=== PATIENT | female | born 1930 | race Caucasian/White ===

== ENCOUNTER 2017-01-19 10:28 | Emergency (ER) | payer MEDICARE, BC ==
[~2017-01-19] VITALS: Ht 160 cm; Wt 44.9 kg
[~2017-01-19 10:28] MED LIST: ALPR0.25 PO; ASPI-1094 PO; CALC500T3 PO; CITA20TA19 PO; Levothyroxine Sodium PO; PANT40TA2 PO
--- NOTE | 2017-01-19 10:40 | NUR ---
patient in room sinus on heart monitor sbp of 93/53 awake alert oriented X0. Patient totally confused. left wrist swollen red with no open skin.
[2017-01-19] MEDS ORDERED: QUET25TA PO (10:57)
[2017-01-19] MEDS ORDERED: MIRT15TA7 PO (10:57)
[2017-01-19] MEDS ORDERED: ASPI81TA31 PO (10:57)
[2017-01-19] MEDS ORDERED: QUET50TA PO (10:57)
--- NOTE | 2017-01-19 11:29 | NUR ---
at bedside examining patient, private sitter at bedside.
[2017-01-19 11:58] LABS: CALCIUM 9.2 mg/dL (8.5-10.1); CREATININE 0.6 mg/dL (0.6-1.3); POTASSIUM 3.5 mmol/L (3.5-5.1)
--- NOTE | 2017-01-19 11:59 | NUR ---
Patient incontinent and wears a diaper Md notified that at this time unable to collect urine, no further orders received.
[2017-01-19 12:04] LABS: ALBUMIN 3.1 g/dL (3.4-5.0); BILIRUBIN,DIRECT 0.1 mg/dL (0.0-0.2); BILIRUBIN,TOTAL 0.4 mg/dL (0.2-1.0); TOTAL PROTEIN, SERUM 7.4 g/dL (6.4-8.2)
[2017-01-19 12:16] LABS: BASOPHILS # (AUTO) 0.1 K/uL (0.0-0.2); BASOPHILS % (AUTO) 0.9 % (0.0-2.0); EOSINOPHILS # (AUTO) 0.1 K/uL (0.0-0.7); EOSINOPHILS % (AUTO) 0.9 % (0.0-7.0); HEMATOCRIT 33.9 % (37.0-47.0); HEMOGLOBIN 11.4 g/dL (12.0-16.0); LYMPHOCYTES # (AUTO) 1.3 K/uL (0.8-4.8); LYMPHOCYTES % (AUTO) 20.6 % (20.5-51.5); MEAN CORPUSCULAR HEMOGLOBIN 30.9 uug (27.0-31.0); MEAN CORPUSCULAR HGB CONC 34 g/dL (32.0-37.0); MEAN CORPUSCULAR VOLUME 91.8 fL (81.0-99.0); MONOCYTES # (AUTO) 0.6 K/uL (0.1-1.30); MONOCYTES % (AUTO) 9.7 % (0.0-11.0); NEUTROPHILS # (AUTO) 4.1 K/uL (1.8-8.9); NEUTROPHILS % (AUTO) 67.9 % (38.5-71.5); PLATELET COUNT (AUTO) 166 K/uL (150-450); RED BLOOD CELL COUNT(AUTO) 3.69 MIL/uL (4.20-5.40); RED CELL DISTRIBUTION WIDTH 13.3 % (11.5-14.5); WHITE BLOOD COUNT (AUTO) 6.2 K/uL (4.0-11.2)
[2017-01-19] MEDS ORDERED: VANCOMYCIN IV 1,000 MG in IV DEXTROSE 5% 250 ML IV ONE (13:00)
[2017-01-19] MEDS ORDERED: VANCOMYCIN 1000 MG VIAL ONE (14:19)
[2017-01-19] MEDS ORDERED: MORPHINE SULFATE 4 MG/1 ML DISP.SYRIN ONE (14:40)
[2017-01-19] MEDS ORDERED: ONDANSETRON 4 MG/2 ML VIAL ONE (14:41)
--- NOTE | 2017-01-19 15:44 | NUR ---
vancomycin dose completed dcd instructions provided to and signed by game breeding farm manager Candy Wetzel. Iv line dcd patient placed wheelchair and wheel to the door where she will be bead picker by her nephew.
== END 2017-01-19 15:56 | disposition home or self-care (01) ==
LOC: ER 10:31
DX: L03.114 Cellulitis of left upper limb (principal); F03.90 Unspecified dementia, unspecified severity, without behavioral disturbance, psychotic disturbance, mood disturbance, and anxiety; I25.10 Atherosclerotic heart disease of native coronary artery without angina pectoris; K21.9 Gastro-esophageal reflux disease without esophagitis; Z79.82 Long term (current) use of aspirin; Z95.818 Presence of other cardiac implants and grafts
CPT/HCPCS: 36415; 70030-TC; 73110; 85025; 85730; A4663; J2270; J2405; J3370; J7060

== ENCOUNTER 2017-03-09 12:25 | Emergency (ER) | payer MEDICARE, BC ==
[~2017-03-09] VITALS: Ht 157.5 cm; Wt 49.9 kg
[~2017-03-09 12:25] MED LIST changes: -ALPR0.25 PO; -ASPI-1094 PO; +ASPI81TA31 PO; -CALC500T3 PO; -CITA20TA19 PO; +MIRT15TA7 PO; +QUET25TA PO; +QUET50TA PO
--- NOTE | 2017-03-09 12:42 | NUR ---
endorsed to BONNIE curtis
--- NOTE | 2017-03-09 13:41 | NUR ---
Patient discharged to home in stable conditon. Written and verbal after care instructions given to patient's private caregiver. Patient's caregiver verbalizes understanding of instructions.
== END 2017-03-09 13:43 | disposition home or self-care (01) ==
LOC: ER 12:25
DX: L03.114 Cellulitis of left upper limb (principal); I25.10 Atherosclerotic heart disease of native coronary artery without angina pectoris; K21.9 Gastro-esophageal reflux disease without esophagitis; F03.90 Unspecified dementia, unspecified severity, without behavioral disturbance, psychotic disturbance, mood disturbance, and anxiety; Z95.818 Presence of other cardiac implants and grafts; Z79.82 Long term (current) use of aspirin
CPT/HCPCS: 73110; 99284; A4663

== ENCOUNTER 2017-09-06 15:18 | Inpatient (IN) | payer MEDICARE, BC ==
[~2017-09-06] VITALS: Ht 157.5 cm; Wt 45.8 kg
[2017-09-06] MEDS ORDERED: LEVO50TA8 PO (16:08)
[2017-09-06] MEDS ORDERED: IV NORMAL SALINE 1000 ML BAG IV ONE (16:15)
[2017-09-06] MEDS ORDERED: ONDANSETRON 4 MG/2 ML VIAL IV ONE (16:15)
[2017-09-06] MEDS ORDERED: MORPHINE SULFATE 2 MG/1 ML DISP.SYRIN IV ONE (16:15)
[2017-09-06] MEDS ORDERED: VANCOMYCIN IV 1,000 MG in IV DEXTROSE 5% 250 ML IV ONE ×2 (16:15→20:00)
[2017-09-06] MEDS ORDERED: ONDANSETRON 4 MG/2 ML VIAL ONE (16:57)
[2017-09-06] MEDS ORDERED: VANCOMYCIN IV 200 ML ONE (16:59)
[2017-09-06] MEDS ORDERED: MORPHINE SULFATE 10 MG/1 ML DISP.SYRIN ONE (17:00)
[2017-09-06 17:04] LABS: BASOPHILS % (AUTO) 0.5 % (0.0-2.0); EOSINOPHILS # (AUTO) 0.3 K/uL (0.0-0.7); EOSINOPHILS % (AUTO) 4.4 % (0.0-7.0); HEMATOCRIT 33.8 % (31.2-41.9); HEMOGLOBIN 11.3 g/dL (10.9-14.3); LYMPHOCYTES # (AUTO) 1.5 K/uL (20.0-40.0); LYMPHOCYTES % (AUTO) 20.1 % (20.5-51.5); MEAN CORPUSCULAR HEMOGLOBIN 31.8 uug (24.7-32.8); MEAN CORPUSCULAR HGB CONC 34 g/dL (32.3-35.6); MEAN CORPUSCULAR VOLUME 94.8 fL (75.5-95.3); MONOCYTES # (AUTO) 0.6 K/uL (2.0-10.0); MONOCYTES % (AUTO) 7.5 % (0.0-11.0); NEUTROPHILS % (AUTO) 67.5 % (38.5-71.5); PLATELET COUNT (AUTO) 203 K/uL (179-408); RED BLOOD CELL COUNT(AUTO) 3.57 MIL/uL (3.63-4.92); WHITE BLOOD COUNT (AUTO) 7.4 K/uL (3.8-11.8)
[2017-09-06 17:11] LABS: CARBON DIOXIDE 27 mmol/L (21-32); CHLORIDE 105 mmol/L (98-107); CREATININE 0.4 mg/dL (0.6-1.3); GLUCOSE 113 mg/dL (74-106); POTASSIUM 3.7 mmol/L (3.5-5.1); UREA NITROGEN, BLOOD 21 mg/dL (7-18)
[2017-09-06 17:17] LABS: ALANINE AMINOTRANSFERASE 16 U/L (14-59); ALKALINE PHOSPHATASE 60 U/L (50-136); ASPARTATE AMINOTRANSFERASE 15 U/L (15-37); BILIRUBIN,DIRECT 0.1 mg/dL (0.0-0.2); BILIRUBIN,TOTAL 0.2 mg/dL (0.2-1.0); TOTAL PROTEIN, SERUM 6.3 g/dL (6.4-8.2)
[2017-09-06 17:44] LABS: *BLOOD, URINE 2+ (NEGATIVE); *CLARITY,URINE CLOUDY (CLEAR); *COLOR,URINE DARK YELLOW (YELLOW); *KETONES,URINE NEGATIVE (NEGATIVE); *PROTEIN,URINE 1+ (NEGATIVE); *UROBILINOGEN,URINE 0.2 E.U./dl (NORMAL); LEUKOCYTE ESTERASE ,URINE NEGATIVE (NEGATIVE); NITRITE, URINE POSITIVE (NEGATIVE); UGLUCOSE NEGATIVE (NEGATIVE)
[2017-09-06 18:07] LABS: *BILIRUBIN,URIN NEGATIVE (NEGATIVE)
[2017-09-06 18:09] LABS: BACTERIA,URINE MANY /HPF (NONE SEEN); MUCUS,URINE MANY /LPF (0-FEW); SQUAMOUS EPITHELIAL CELL,UR FEW /HPF (NONE SEEN); URINE AMORPHOUS URATE FEW /HPF
[2017-09-06] MEDS ORDERED: PIPERACILLIN SODIUM/TAZOBACTAM 3.375 G in IV DEXTROSE 5% 50 ML IV ONE (20:00)
[2017-09-06] MEDS ORDERED: PIPERACILLIN/TAZOBACTAM/D5W 50 ML IV ONE (20:16)
--- NOTE | 2017-09-06 20:29 | NUR ---
Pt. admitted to TELE, under care of Dr. Benitez Belongs List completed
[2017-09-06 21:00] VITALS: BP 134/44
[2017-09-06] MEDS: PIPERACILLIN/TAZOBACTAM/D5W 50 ML IV SCH (21:45)
[2017-09-06] MEDS ORDERED: ONDANSETRON 4 MG/2 ML VIAL IV PRN (21:45)
[2017-09-06] MEDS ORDERED: MORPHINE SULFATE 2 MG/1 ML DISP.SYRIN IV PRN (21:45)
[2017-09-07] VITALS: BP 139/45
[2017-09-07] MEDS ORDERED: PIPERACILLIN/TAZOBACTAM/D5W 50 ML IV ONE (03:46)
[2017-09-07] MEDS: PIPERACILLIN/TAZOBACTAM/D5W 50 ML IV SCH ×4 (04:02→21:19)
[2017-09-07 04:48] VITALS: BP 125/46
[2017-09-07 07:02] LABS: BASOPHILS % (AUTO) 0.4 % (0.0-2.0); EOSINOPHILS # (AUTO) 0.4 K/uL (0.0-0.7); EOSINOPHILS % (AUTO) 4.2 % (0.0-7.0); HEMOGLOBIN 11.6 G/DL (12.0-16.0); LYMPHOCYTES # (AUTO) 1.7 K/UL (0.8-4.8); LYMPHOCYTES % (AUTO) 17.7 % (20.5-51.5); MEAN CORPUSCULAR HEMOGLOBIN 32.1 UUG (27.0-31.0); MEAN CORPUSCULAR HGB CONC 34 g/dL (32.0-37.0); MEAN CORPUSCULAR VOLUME 94.3 FL (81.0-99.0); MONOCYTES # (AUTO) 0.7 K/UL (0.1-1.30); MONOCYTES % (AUTO) 7.3 % (0.0-11.0); NEUTROPHILS # (AUTO) 7.1 K/UL (1.8-8.9); NEUTROPHILS % (AUTO) 70.4 % (38.5-71.5); PLATELET COUNT (AUTO) 268 K/UL (150-450); WHITE BLOOD COUNT (AUTO) 9.9 K/UL (4.0-11.2)
[2017-09-07 07:18] LABS: CARBON DIOXIDE 27 mmol/L (21-32); CHLORIDE 106 mmol/L (98-107); CREATININE 0.5 mg/dL (0.6-1.3); GLUCOSE 101 mg/dL (74-106); POTASSIUM 4.1 mmol/L (3.5-5.1); UREA NITROGEN, BLOOD 15 mg/dL (7-18)
--- NOTE | 2017-09-07 08:00 | NUR ---
RECEIVED PATIENT IN BED WITH EYES CLOSED OPENS EYES WHEN TOUCHED NON VERBAL MAX ASSIST FOR ALL ADL TURNED AND REPOSITIONED Q2H FOR CORRECT BODY ALLIGNMENT.PATIENT HAS MULTIPLE PRESSURE AREAS WILL CHECK ASSISTED WITH MEALS MADE COMFORTABLE.
[2017-09-07] MEDS: ASPIRIN 81 MG TAB.CHEW PO SCH (09:24)
[2017-09-07] MEDS: QUETIAPINE FUMARATE 25 MG TABLET PO SCH ×3 (09:24→21:19)
[2017-09-07] MEDS: LEVOTHYROXINE SODIUM 50 MCG TABLET PO SCH (11:10)
[2017-09-07 11:43] VITALS: BP 119/53
[2017-09-07] MEDS ORDERED: Z GUARD REMEDY PASTE 57 GM TUBE TOP PRN (12:15)
--- NOTE | 2017-09-07 12:16 | NUR ---
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 ENTIRE AREA WAS MEASURED. PT ALSO NOTED TO HAVE RT HEEL SCARRING, LEFT HEEL DEEP TISSUE INJURY (INTACT), LEFT LATERAL KNEE STAGE 2 ULCER AND LEFT HIP FRAGILE SCAR, ALL PRESENT ON ADMISSION. PT IS IMMOBILE AND INCONTINENT WITH CURRENT GLADIS SCORE OF 11. FIRST STEP MATTRESS ORDERED. SURGICAL CONSULT RECOMMENDED. ALL SKIN PROTECTION AND WOUND RECOMMENDATIONS DISCUSSED WITH NURSING STAFF. WILL SEE PRN. REES IN AGREEMENT WITH PLAN OF CARE. Addendum: 09/07/17 at 1219 by EBONI LAZAR RN Amended: Links added.
--- NOTE | 2017-09-07 15:15 | NUR ---
REMAIN ON IV ATB ORDERED WITH NO ADVERSE OR ALLERGIC REACTIONS AT THIS TIME TURNED AND REPOSITIONED Q2H STILL AWAITING FOR THE FIRST STEP REBEKAH TO BE MADE AVAILABLE BY THE CENTRAL SUPPLY.
[2017-09-07 15:37] VITALS: BP 118/56
--- NOTE | 2017-09-07 16:21 | NUR ---
Clinical pharmacy note-Vancomycin per pharmacy Subjective: To start Vancomycin dosing on this patient for suspected infection (sacral decubitus ulcer) Objective: BUN 15 Scr 0.5 WBc 9.9 Temp 99.2 ht 5'2" wt 101 lbs Assessment/Plan: Patient had Vancomycin 1 gram last night at 1700. Will continue Vancomycin 750mg IV every 24hrs(starting tonight at 2300) and draw trough by 4th dose(not ordered yet) for expected trough around 16. Will monitor daily.
--- NOTE | 2017-09-07 19:30 | NUR ---
PT IN ROOM ALERT AWAKE. DRESSINGS TO AFFECTED DECUBS INTACT. PT REPOSITIONED. BP 132/55. T 99.3. NO ACUTE DISTRESS NOTED. CONTINUE TO MONITOR. 3 SIDE RAILS RAISED.
[2017-09-07 20:21] VITALS: BP 132/55
[2017-09-07] MEDS: MIRTAZAPINE 15 MG TABLET PO SCH (21:18)
[2017-09-07] MEDS: Z GUARD REMEDY PASTE 57 GM TUBE TOP SCH (21:19)
[2017-09-07] MEDS: VANCOMYCIN IV 750 MG in IV DEXTROSE 5% 250 ML IV SCH (23:38)
--- NOTE | 2017-09-08 01:00 | NUR ---
Pt is asleep in room in no acute distress. No reaction to current abx IV therapy. Pt repositioned. Continue to monitor.
[2017-09-08] MEDS: PIPERACILLIN/TAZOBACTAM/D5W 50 ML IV SCH ×4 (03:43→22:03)
[2017-09-08 04:54] VITALS: BP 110/49
--- NOTE | 2017-09-08 05:00 | NUR ---
Pt in room asleep in no distress. mepilex on current sores intact. No c/o pain at this time. Continue to monitor. 3 side rails raised.
[2017-09-08] MEDS: LEVOTHYROXINE SODIUM 50 MCG TABLET PO SCH (06:00)
--- NOTE | 2017-09-08 07:45 | NUR ---
RECEIVED PATIENT AWAKE NON VERBAL ALL NEEDS ANTICIPATED AND SATISFIED.TURNED AND REPOSITIONED Q2H SHE IS ON SPECIALTY MATTRASS FOR DECUBITUS MANAGEMENT REMAIN ON ANTIBIOTICS ORDERED WITH NO ADVERSE OR ALLERGIC REACTIONS AT THIS TIME MADE COMFORTABLE NOT IN DISTRESS AT THIS TIME.
[2017-09-08 07:50] LABS: ALANINE AMINOTRANSFERASE 13 U/L (14-59); ALKALINE PHOSPHATASE 57 U/L (50-136); ASPARTATE AMINOTRANSFERASE 13 U/L (15-37); BILIRUBIN,TOTAL 0.4 mg/dL (0.2-1.0); CARBON DIOXIDE 26 mmol/L (21-32); CHLORIDE 104 mmol/L (98-107); CREATININE 0.4 mg/dL (0.6-1.3); GLUCOSE 110 mg/dL (74-106); PHOSPHOROUS 2.6 mg/dL (2.5-4.9); POTASSIUM 3.9 mmol/L (3.5-5.1); TOTAL PROTEIN, SERUM 6.2 g/dL (6.4-8.2); UREA NITROGEN, BLOOD 16 mg/dL (7-18)
[2017-09-08 07:54] LABS: BASOPHILS % (AUTO) 0.4 % (0.0-2.0); EOSINOPHILS # (AUTO) 0.3 K/uL (0.0-0.7); EOSINOPHILS % (AUTO) 4.5 % (0.0-7.0); HEMATOCRIT 34.9 % (31.2-41.9); HEMOGLOBIN 11.7 g/dL (10.9-14.3); LYMPHOCYTES # (AUTO) 1.3 K/uL (20.0-40.0); LYMPHOCYTES % (AUTO) 21.6 % (20.5-51.5); MEAN CORPUSCULAR HEMOGLOBIN 31.7 uug (24.7-32.8); MEAN CORPUSCULAR HGB CONC 34 g/dL (32.3-35.6); MEAN CORPUSCULAR VOLUME 94.6 fL (75.5-95.3); MONOCYTES # (AUTO) 0.6 K/uL (2.0-10.0); MONOCYTES % (AUTO) 9.7 % (0.0-11.0); NEUTROPHILS # (AUTO) 3.9 K/uL (1.8-8.9); NEUTROPHILS % (AUTO) 63.8 % (38.5-71.5); PLATELET COUNT (AUTO) 213 K/uL (179-408); RED BLOOD CELL COUNT(AUTO) 3.68 MIL/uL (3.63-4.92)
[2017-09-08 07:56] LABS: THYROID STIMULATING HORMONE 14.335 mIU/mL (0.358-3.740)
[2017-09-08 08:11] LABS: WHITE BLOOD COUNT (AUTO) 6.1 K/uL (3.8-11.8)
[2017-09-08] MEDS: ASPIRIN 81 MG TAB.CHEW PO SCH (08:22)
[2017-09-08] MEDS: QUETIAPINE FUMARATE 25 MG TABLET PO SCH ×3 (08:22→21:00)
[2017-09-08] MEDS: Z GUARD REMEDY PASTE 57 GM TUBE TOP SCH ×2 (08:26→21:41)
--- NOTE | 2017-09-08 11:00 | NUR ---
DR BARRIOS HERE TO SEE PATIENT AND ASKED IF THE LICENSED ARCHITECT HAS SEEN PATIENT YES SO I INFORMED HIM THAT THE LICENSED ARCHITECT WAS RECOMMENDING DEBRIDEMENT OF THE SACRAL WOUND AND THE LICENSED ARCHITECT ALREADY NOTIFIED DR MUELLER YESTERDAY THAT PATIENT NEEDS SURGICAL DEBRIDEMENT UNKNOWN IF THE SURGEON WAS CALLED BY DR MUELLER.
[2017-09-08 11:08] VITALS: BP 111/74
--- NOTE | 2017-09-08 12:35 | NUR ---
Clinical pharmacy note-Vancomycin per pharmacy Subjective: To continue Vancomycin dosing on this patient for sacral decubitus ulcer Objective: BUN 16 Scr 0.4 WBc 6.1 Temp 98.5 ht 5'2" wt 101 lbs Assessment/Plan: Will continue same dose of Vancomycin 750mg IV every 24hrs for today. 2nd dose is due today at 2300. Plan to draw trough by 4th dose(not ordered yet). Will monitor renal function & adjust dose if needed. Will monitor daily.
[2017-09-08 15:32] VITALS: BP 110/50
--- NOTE | 2017-09-08 17:34 | NUR ---
RESTING AT NOT IN DISTRESS TURNED AND REPOSITIONED Q2H HEELS FLOATED AND ALL NEEDS ANTICIPATED AND SATISFIED WILL CONTINUE TO OBSERVE.
[2017-09-08 20:38] VITALS: BP 111/51
[2017-09-08] MEDS: MIRTAZAPINE 15 MG TABLET PO SCH (21:00)
--- NOTE | 2017-09-08 22:00 | NUR ---
received to care, lying in bed, asleep. is easy to awaken, but falls right back to sleep, so her bedtime medications were held. remains on air mattress. repositioned q 2 hours, with pillows for support. heels floated off mattress. kept clean and dry. z guard ointment, as needed. a sof 2200, she remains asleep. no distress noted. will continue to monitor closely.
--- NOTE | 2017-09-08 22:40 | NUR ---
Anne Willingham NP, was here to conduct surgical consult, for wound to sacral region. no new orders given.
[2017-09-08] MEDS: VANCOMYCIN IV 750 MG in IV DEXTROSE 5% 250 ML IV SCH (23:57)
[2017-09-09] MEDS: PIPERACILLIN/TAZOBACTAM/D5W 50 ML IV SCH ×5 (03:45→20:56)
[2017-09-09 04:20] VITALS: BP 125/50
[2017-09-09] MEDS: LEVOTHYROXINE SODIUM 50 MCG TABLET PO SCH (06:07)
[2017-09-09] MEDS ORDERED: LIDOCAINE 2%-EPI 1:100,000 20 ML VIAL TP ONE (07:15)
[2017-09-09] MEDS ORDERED: LEVO75TA PO (07:27)
[2017-09-09] MEDS ORDERED: PIPE3.376 IV (07:30)
[2017-09-09] MEDS: QUETIAPINE FUMARATE 25 MG TABLET PO SCH ×3 (09:50→20:56)
[2017-09-09] MEDS: ASPIRIN 81 MG TAB.CHEW PO SCH (09:50)
[2017-09-09] MEDS: Z GUARD REMEDY PASTE 57 GM TUBE TOP SCH ×2 (09:52→20:57)
[2017-09-09] MEDS: ACETAMINOPHEN 325 MG TABLET PO PRN (09:56)
[2017-09-09] MEDS ORDERED: LIDOCAINE 4% TOPICAL 50 ML BOTTLE TP ONE ×2 (10:15→10:30)
[2017-09-09] MEDS ORDERED: SILVER NITRATE APPLICATOR STICK EACH TP ONE ×2 (10:18→10:30)
[2017-09-09] MEDS ORDERED: LIDOCAINE HCL 2% 20 ML VIAL TP ONE (10:45)
[2017-09-09 11:46] VITALS: BP 109/58
--- NOTE | 2017-09-09 14:15 | NUR ---
Clinical pharmacy note-Vancomycin per pharmacy Subjective: To continue Vancomycin dosing on this patient for sacral decubitus ulcer Objective: BUN 16 (09/08) Scr 0.4 (09/08) WBc 6.1 (09/08) Temp 98.4 ht 5'2" wt 101 lbs Assessment/Plan: Will continue same dose of Vancomycin 750mg IV every 24hrs for today. 3rdnd dose is due today at 2300. Plan to draw trough by 4th dose(not ordered yet). Will monitor renal function & adjust dose if needed. Will monitor daily.
[2017-09-09 15:55] VITALS: BP 112/61
--- NOTE | 2017-09-09 16:15 | NUR ---
Call to family member on list, Forrest says to call sister, Louisa. Call to Louisa on home phone Unable to leave message recording picks up. Pharmacist requesting information regarding if patient is taking Protonix at home. Will endorse to shift production supervisor for follow up.
--- NOTE | 2017-09-09 19:26 | NUR ---
Handoff to night nurse.
[2017-09-09 20:12] VITALS: BP 108/46
[2017-09-09] MEDS: MIRTAZAPINE 15 MG TABLET PO SCH (20:56)
[2017-09-09] MEDS: LACTOBACILLUS RHAMNOSUS GG 1 EACH CAPSULE PO SCH (22:28)
[2017-09-09] MEDS: VANCOMYCIN IV 750 MG in IV DEXTROSE 5% 250 ML IV SCH (22:29)
[2017-09-09] MEDS ORDERED: LACTOBACILLUS RHAMNOSUS GG 1 EACH CAPSULE ONE (22:36)
[2017-09-10] MEDS: PIPERACILLIN/TAZOBACTAM/D5W 50 ML IV SCH ×4 (03:10→20:54)
[2017-09-10 04:50] VITALS: BP 124/52
--- NOTE | 2017-09-10 05:40 | NUR ---
PT SLEPT WELL THROUGH THE NIGHT AND WAS EASILY AWOKEN, PT DENIED HAVING ANY PAIN OR DIFFICULTY BREATHING. PT REPOSITIONED Q2HR, PT COCCYX WOUND DRESSING IS DRY CLEAN AND INTACT. ALL NEEDS MET, SAFETY MEASURES ARE IN PLACE, CALL LIGHT WITHIN REACH, BED ALARM IS ON.
[2017-09-10] MEDS: LEVOTHYROXINE SODIUM 50 MCG TABLET PO SCH (06:11)
--- NOTE | 2017-09-10 08:30 | NUR ---
RESTING QUIET AND WELL NO SOB OR PAIN ON ASPIRATION /FALL PRECAUTION CALL LIGHT IN REACH AND BED ALARM ON
[2017-09-10] MEDS: ACETAMINOPHEN 325 MG TABLET PO PRN (08:55)
[2017-09-10] MEDS: LACTOBACILLUS RHAMNOSUS GG 1 EACH CAPSULE PO SCH ×2 (08:55→20:08)
[2017-09-10] MEDS: ASPIRIN 81 MG TAB.CHEW PO SCH (08:55)
[2017-09-10] MEDS: Z GUARD REMEDY PASTE 57 GM TUBE TOP SCH ×2 (08:56→20:09)
--- NOTE | 2017-09-10 09:00 | NUR ---
DR MUELLER HERE SEE PATIENT NO NEW ORDER
[2017-09-10] MEDS: QUETIAPINE FUMARATE 25 MG TABLET PO SCH ×3 (09:14→20:08)
--- NOTE | 2017-09-10 10:00 | NUR ---
FAMILY DAUGHTER AT BEDSIDE REPOSITION Q2 HR RESTING
[2017-09-10 12:05] VITALS: BP 114/50
--- NOTE | 2017-09-10 15:24 | NUR ---
Clinical pharmacy note-Vancomycin per pharmacy Subjective: To continue Vancomycin dosing on this patient for sacral decubitus ulcer Objective: BUN 16 (09/08) Scr 0.4 (09/08) WBc 6.1 (09/08) Temp 97.7 ht 5'2" wt 101 lbs Assessment/Plan: Will continue same dose of Vancomycin 750mg IV every 24hrs for today. 3rdnd dose was given yesterday at 2300. Plan to draw trough by 4th dose(ordered for tonight at 2230). Nurse will be instructed dose if trough is over 20. Will monitor daily.
[2017-09-10 16:00] VITALS: BP 111/54
--- NOTE | 2017-09-10 18:00 | NUR ---
CONDITION STABLE PAIN UNDER CONTROL SAFETY MEASURE PROVIDED BED ALARM ON AND CALL LIGHT IN REACH
--- NOTE | 2017-09-10 19:30 | NUR ---
RECEIVED IN BED, EYES CLOSED. AROUSABLE TO TOUCH/ NAME. IN NO ACUTE SIGNS OF DISTRESS. SAFETY MEASURES OBSERVED.
[2017-09-10 20:00] VITALS: BP 147/48
[2017-09-10] MEDS: MIRTAZAPINE 15 MG TABLET PO SCH (20:08)
[2017-09-10] MEDS: VANCOMYCIN IV 750 MG in IV DEXTROSE 5% 250 ML IV SCH (23:29)
[2017-09-11] MEDS: PIPERACILLIN/TAZOBACTAM/D5W 50 ML IV SCH ×3 (03:28→15:35)
[2017-09-11 04:56] VITALS: BP 115/56
[2017-09-11] MEDS: ACETAMINOPHEN 325 MG TABLET PO PRN (05:36)
[2017-09-11] MEDS: LEVOTHYROXINE SODIUM 50 MCG TABLET PO SCH (06:06)
--- NOTE | 2017-09-11 07:30 | NUR ---
RECEIVED IN BED AWAKE NON VERBAL ALL NEEDS ANTICIPATED AND SATISFIED.MAX ASSIST FOR ALL ADL HEPLOCK RIGHT FOREARM IS INTACT FLUSHED PER PROTOCOL ON ROOM AIR WITH NO SHORTNESS OF BREATH HEELS FLOATED TURNED AND REPOSITIONED Q2H MADE COMFORTABLE NOT IN DISTRESS AT THIS TIME.
[2017-09-11] MEDS: QUETIAPINE FUMARATE 25 MG TABLET PO SCH ×3 (08:24→20:14)
[2017-09-11] MEDS: ASPIRIN 81 MG TAB.CHEW PO SCH (08:24)
[2017-09-11] MEDS: LACTOBACILLUS RHAMNOSUS GG 1 EACH CAPSULE PO SCH ×2 (08:24→20:14)
[2017-09-11] MEDS: Z GUARD REMEDY PASTE 57 GM TUBE TOP SCH ×2 (08:26→20:15)
--- NOTE | 2017-09-11 09:42 | NUR ---
DR VELASCO HERE TO SEE PATIENT SAW HER SACRAL DECUBITUS WITH NEW ORDERS AND NOTED.
[2017-09-11 11:10] VITALS: BP 103/65
[2017-09-11] MEDS: THERAHONEY GEL 1.5 OZ TUBE TOP SCH (13:30)
[2017-09-11] MEDS ORDERED: VANCOMYCIN IV 750 MG in IV DEXTROSE 5% 250 ML IV SCH (15:30)
--- NOTE | 2017-09-11 15:35 | NUR ---
Clinical pharmacy note-Vancomycin per pharmacy Subjective: To continue Vancomycin dosing on this patient for sacral decubitus ulcer Objective: BUN 16 (09/08) Scr 0.4 (09/08) WBc 6.1 (09/08) Temp 98.2 ht 5'2" wt 101 lbs Vancomycin trough 5.0 last night at 2230 Assessment/Plan: Since Vancomycin trough is subtherapeutic, will increase dose to 750mg IV every 13hrs(2nd dose today at 1530)and draw trough by 4th dose(not ordered yet) for expected trough around 15. Will monitor daily.
[2017-09-11 15:40] VITALS: BP 105/45
--- NOTE | 2017-09-11 16:00 | NUR ---
TURNED AND REPOSITIONED Q2H WITH TREATMENT IN PROGRESS ORDERED WITH HEELS FLOATED ALL NEEDS ANTICIPATED AND SATISFIED MAX ASSIST FOR ALL ADL MADE COMFORTABLE.REMAIN ON ANTIBIOTICS ORDERED WITH NO ADVERSE OR ALLERGIC REACTIONS AT THIS TIME.
[2017-09-11] MEDS ORDERED: LEVOFLOXACIN 500 MG TABLET PO ONE (17:00)
--- NOTE | 2017-09-11 18:00 | NUR ---
RESTING APPETITE IS GOOD TOTAL ASSIST FOR FEEDINGS AND ADL.REMAINS ON FIRST STEP MATTRASS ORDERED WITH HEELS FLOATED MADE COMFORTABLE NOT IN DISTRESS AT THIS TIME.
--- NOTE | 2017-09-11 19:15 | NUR ---
RECEIVED IN BED RESTING, IN NO ACUTE SIGN OF DISTRESS, ON R/A. BREATHING UNLABORED. WILL CONTINUE TO MONITOR.
[2017-09-11 19:30] VITALS: BP 109/50
[2017-09-11] MEDS: MIRTAZAPINE 15 MG TABLET PO SCH (20:15)
[2017-09-12 06:19] VITALS: BP 136/54
[2017-09-12] MEDS: LEVOTHYROXINE SODIUM 50 MCG TABLET PO SCH (06:37)
--- NOTE | 2017-09-12 06:57 | NUR ---
WOUND CARE TX ON LEFT HEEL AND SACRUM. TURNED AND REPOSITIONED. SAFETY MEASURES RENDERED.
[2017-09-12] MEDS: ACETAMINOPHEN 325 MG TABLET PO PRN ×2 (08:40→21:17)
[2017-09-12] MEDS: LACTOBACILLUS RHAMNOSUS GG 1 EACH CAPSULE PO SCH ×2 (08:40→21:03)
[2017-09-12] MEDS: QUETIAPINE FUMARATE 25 MG TABLET PO SCH ×3 (08:40→21:03)
[2017-09-12] MEDS: LEVOFLOXACIN 250 MG TABLET PO SCH (08:40)
[2017-09-12] MEDS: ASPIRIN 81 MG TAB.CHEW PO SCH (08:40)
[2017-09-12] MEDS: THERAHONEY GEL 1.5 OZ TUBE TOP SCH (08:47)
[2017-09-12] MEDS: Z GUARD REMEDY PASTE 57 GM TUBE TOP SCH ×2 (08:48→21:04)
[2017-09-12 11:50] VITALS: BP 117/52
[2017-09-12 15:55] VITALS: BP 110/51
--- NOTE | 2017-09-12 19:30 | NUR ---
RECEIVED PATIENT IN BED, AWAKE, NO S/S OF SOB NOR CHEST PAIN AT THIS TIME, TURN AND REPOSITION, KEPT CLEAN AND DRY, TX CONT ON SACRAL, HEELS WOUND, KEPT COMFORTABLE,
--- NOTE | 2017-09-12 19:51 | NUR ---
Handoff to night nurse.
[2017-09-12 20:00] VITALS: BP 119/52
[2017-09-12] MEDS: MIRTAZAPINE 15 MG TABLET PO SCH (21:03)
[2017-09-13 06:04] VITALS: BP 114/51
[2017-09-13] MEDS: LEVOTHYROXINE SODIUM 50 MCG TABLET PO SCH (06:08)
[2017-09-13 07:19] LABS: BASOPHILS % (AUTO) 0.7 % (0.0-2.0); EOSINOPHILS # (AUTO) 0.5 K/uL (0.0-0.7); EOSINOPHILS % (AUTO) 8.6 % (0.0-7.0); HEMATOCRIT 32.7 % (37-47); HEMOGLOBIN 10.9 G/DL (12.0-16.0); LYMPHOCYTES # (AUTO) 1.6 K/UL (0.8-4.8); LYMPHOCYTES % (AUTO) 27.4 % (20.5-51.5); MEAN CORPUSCULAR HEMOGLOBIN 31.9 UUG (27.0-31.0); MEAN CORPUSCULAR HGB CONC 33 g/dL (32.0-37.0); MEAN CORPUSCULAR VOLUME 95.9 FL (81.0-99.0); MONOCYTES # (AUTO) 0.7 K/UL (0.1-1.30); MONOCYTES % (AUTO) 12.2 % (0.0-11.0); NEUTROPHILS % (AUTO) 51.1 % (38.5-71.5); PLATELET COUNT (AUTO) 262 K/UL (150-450); RED BLOOD CELL COUNT(AUTO) 3.41 MIL/UL (4.2-5.4); WHITE BLOOD COUNT (AUTO) 5.8 K/UL (4.0-11.2)
[2017-09-13 07:32] LABS: CARBON DIOXIDE 34 mmol/L (21-32); CHLORIDE 103 mmol/L (98-107); CREATININE 0.5 mg/dL (0.6-1.3); GLUCOSE 106 mg/dL (74-106); MAGNESIUM 2.2 mg/dL (1.8-2.4); PHOSPHOROUS 3.4 mg/dL (2.5-4.9); POTASSIUM 4.5 mmol/L (3.5-5.1); UREA NITROGEN, BLOOD 12 mg/dL (7-18)
[2017-09-13] MEDS: HYDROMORPHONE 2 MG/1 ML DISP.SYRIN IV PRN (08:39)
[2017-09-13] MEDS: ASPIRIN 81 MG TAB.CHEW PO SCH (08:40)
[2017-09-13] MEDS: LACTOBACILLUS RHAMNOSUS GG 1 EACH CAPSULE PO SCH ×2 (08:40→20:01)
[2017-09-13] MEDS: LEVOFLOXACIN 250 MG TABLET PO SCH (08:40)
[2017-09-13] MEDS: QUETIAPINE FUMARATE 25 MG TABLET PO SCH ×3 (08:41→20:02)
--- NOTE | 2017-09-13 09:00 | NUR ---
Pt observed resting, no respiratory distress noted, HEDIS SPECIALIST at bed side feeding her, pt quiet, med compliant. Care Plan implemented for pain management, wound care, and fall risk.
[2017-09-13] MEDS: Z GUARD REMEDY PASTE 57 GM TUBE TOP SCH ×2 (09:44→20:02)
[2017-09-13] MEDS: THERAHONEY GEL 1.5 OZ TUBE TOP SCH (09:46)
[2017-09-13 12:09] VITALS: BP 103/42
[2017-09-13 15:51] VITALS: BP 110/45
--- NOTE | 2017-09-13 18:43 | NUR ---
Care plan implemented and effective. Pain managed by giving dilaudid, bed at lowest locked position room free of clutter to decrease fall risk, wound care provided for pt, with hydrogel and mepiplex. Pt show no signs of respiratory distress at this time.
--- NOTE | 2017-09-13 19:45 | NUR ---
PATIENT IN BED AWAKE, NO COUGHING, NO CHOKING NOTED, TOLERATE CURRENT DIET, NO SOB NO CHEST PAIN, OXYGEN SAT WNL, TURN AND REPOSITION, CONT SKIN ASSESSMENT, TX CONTINUE, KEPT COMFORTABLE.
[2017-09-13 20:00] VITALS: BP 107/45
[2017-09-13] MEDS: MIRTAZAPINE 15 MG TABLET PO SCH (20:01)
[2017-09-14 05:05] VITALS: BP 107/49
--- NOTE | 2017-09-14 05:45 | NUR ---
PATIENT SLEPT MOST OF THE NIGHT, NO SOB NO CHEST PAIN NOTED, TURN AND REPOSITION EVERY TWO HOURS, KEPT CLEAN AND DRY, NO S/S OF PAIN AT THIS TIME,
[2017-09-14] MEDS: LEVOTHYROXINE SODIUM 50 MCG TABLET PO SCH (06:06)
[2017-09-14] MEDS: ASPIRIN 81 MG TAB.CHEW PO SCH (08:12)
[2017-09-14] MEDS: QUETIAPINE FUMARATE 25 MG TABLET PO SCH ×3 (08:12→22:30)
[2017-09-14] MEDS: THERAHONEY GEL 1.5 OZ TUBE TOP SCH (08:13)
[2017-09-14] MEDS: LEVOFLOXACIN 250 MG TABLET PO SCH (08:13)
[2017-09-14] MEDS: LACTOBACILLUS RHAMNOSUS GG 1 EACH CAPSULE PO SCH ×2 (08:13→22:28)
[2017-09-14] MEDS: Z GUARD REMEDY PASTE 57 GM TUBE TOP SCH ×2 (08:13→22:39)
[2017-09-14] MEDS: HYDROMORPHONE 2 MG/1 ML DISP.SYRIN IV PRN (08:15)
[2017-09-14 11:20] VITALS: BP 116/48
[2017-09-14 15:31] VITALS: BP 105/51
--- NOTE | 2017-09-14 20:00 | NUR ---
RECEIVED SHIFT REPORT FROM PREVIOUS SHIFT NURSE. PATIENT UNABLE TO COMMUNICATE. PATIENT ABLE REACTS BY OPENING EYES, THEN GOES BACK TO SLEEP. PATIENT APPEARS COMFORTABLE IN BED. WILL TURN/REPOSITION PATIENT Q2H. PATIENT IS SAFE, NO S/S OF DISTRESS. BED IN LOCKED/LOW POSITION, BED ALARM ON. SAFETY AND COMFORT WILL BE PROVIDED.
[2017-09-14] MEDS: MIRTAZAPINE 15 MG TABLET PO SCH (22:30)
[2017-09-15 05:25] VITALS: BP 130/54
[2017-09-15] MEDS: LEVOTHYROXINE SODIUM 50 MCG TABLET PO SCH (06:07)
--- NOTE | 2017-09-15 06:35 | NUR ---
PATIENT'S VITAL SIGNS STABLE. PATIENT SLEPT THROUGH MAJORITY OF THE NIGHT. STABLE CONDITION. NO S/S OF DISTRESS. DRESSING CHANGE COMPLETED THROUGH MD ORDERS. PATIENT REPOSITIONED Q2H THROUGHOUT SHIFT. BED IN LOCKED/LOW POSITION, BED ALARM ON AND CALL LIGHT WITHIN REACH.
[2017-09-15] MEDS: QUETIAPINE FUMARATE 25 MG TABLET PO SCH ×3 (09:00→20:40)
[2017-09-15] MEDS: Z GUARD REMEDY PASTE 57 GM TUBE TOP SCH ×2 (09:00→20:40)
[2017-09-15] MEDS: THERAHONEY GEL 1.5 OZ TUBE TOP SCH (09:00)
[2017-09-15] MEDS: LEVOFLOXACIN 250 MG TABLET PO SCH (09:00)
[2017-09-15] MEDS: ASPIRIN 81 MG TAB.CHEW PO SCH (09:00)
[2017-09-15] MEDS: LACTOBACILLUS RHAMNOSUS GG 1 EACH CAPSULE PO SCH ×2 (09:00→20:40)
[2017-09-15 11:26] VITALS: BP 126/45
[2017-09-15 15:29] VITALS: BP 108/40
[2017-09-15] MEDS: HYDROMORPHONE 2 MG/1 ML DISP.SYRIN IV PRN ×2 (18:34→21:16)
--- NOTE | 2017-09-15 18:51 | NUR ---
PT. RESTLESS MOANING INTERMITANTLY, GRIMACING--MEDICATED WITH DILAUDID PER ORDER.
--- NOTE | 2017-09-15 18:52 | NUR ---
DR. VELASCO IN TO SEE PT.
--- NOTE | 2017-09-15 20:00 | NUR ---
PATIENT AWAKE IN BED. ALERT TO SELF ONLY. NO S/S OF PAIN OR DISCOMFORT AT THIS TIME. NO FACIAL GRIMACE NOTED. NO RESP. DISTRESS NOTED. ON AIR MATTRESS. BED ALARM ON. CALL LIGHT IN REACH. ALL NEEDS ATTENDED. WILL CONTINUE TO MONITOR.
[2017-09-15 20:23] VITALS: BP 130/64
[2017-09-15] MEDS: MIRTAZAPINE 15 MG TABLET PO SCH (20:40)
[2017-09-15] MEDS: ACETAMINOPHEN 325 MG TABLET PO PRN (20:41)
--- NOTE | 2017-09-15 20:45 | NUR ---
PATIENT HAS TEMPERATURE. 100.1. PATIENT GIVEN TYLENOL 650MG PO PRN CRUSHED WITH APPLESAUCE. ALL OTHER VSS. WILL CONTINUE TO MONITOR.
--- NOTE | 2017-09-15 21:15 | NUR ---
WOUND CARE AND TX DONE AND PICTURES TAKEN. PATIENT APPEARS IN PAIN. FACIAL GRIMACING AND CLENCHING TEETH. PATIENT REPOSITIONED TO SIDE FOR PRESSURE RELIEF. PATIENT GIVEN DILAUDID 0.25MG IV PER THEATRE DIRECTOR. WILL CONTINUE TO MONITOR AND ASSESS.
--- NOTE | 2017-09-15 22:30 | NUR ---
PATIENT ASLEEP IN BED. RESTING WELL. NO S/S OF PAIN OR DISCOMFORT. NO FACIAL GRIMACE NOTED. WILL CONTINUE TO MONITOR. BED ALARM ON.
--- NOTE | 2017-09-15 23:33 | NUR ---
PATIENT ASLEEP. RECHECKED PATIENTS TEMPERATURE. AFEBRILE. 97.9 AXILLARY = 98.9. WILL CONTINUE TO MONITOR AND ASSESS VITALS. ALL NEEDS ATTENDED.
[2017-09-16 04:40] VITALS: BP 107/67
--- NOTE | 2017-09-16 06:32 | NUR ---
PATIENT ASLEEP IN BED. REPOSITIONED TO SIDE. SLEPT WELL THROUGHOUT THE NIGHT. BED ALARM ON. CALL LIGHT IN REACH. ALL NEEDS ATTENDED. WILL CONTINUE TO MONITOR.
[2017-09-16] MEDS: LEVOTHYROXINE SODIUM 50 MCG TABLET PO SCH (06:38)
[2017-09-16] MEDS: LEVOFLOXACIN 250 MG TABLET PO SCH (08:15)
[2017-09-16] MEDS: ASPIRIN 81 MG TAB.CHEW PO SCH (08:15)
[2017-09-16] MEDS: QUETIAPINE FUMARATE 25 MG TABLET PO SCH ×2 (08:15→13:27)
[2017-09-16] MEDS: LACTOBACILLUS RHAMNOSUS GG 1 EACH CAPSULE PO SCH (08:15)
[2017-09-16] MEDS: THERAHONEY GEL 1.5 OZ TUBE TOP SCH (08:16)
[2017-09-16] MEDS: Z GUARD REMEDY PASTE 57 GM TUBE TOP SCH (08:16)
[2017-09-16 11:08] VITALS: BP 117/47
[2017-09-16 15:41] VITALS: BP 118/53
--- NOTE | 2017-09-16 17:40 | NUR ---
[facility], Angie Jasso notified of transfer, transferred via ambulance and gurney, no facial cues of pain noted, no signs of distress noted, 112/48, 84 pulse, 16 resp, 98.8 oral temperature, report given to Katrina GRAY, exit care, discharge instructions included, pictures of decubitus ulcers taken and placed in chart
== END 2017-09-16 17:10 | DRG 570 ==
LOC: ER 15:18 → TELE 20:27 → MED 21:19
PROVIDERS: ADMIT Internal Medicine Nephrology; ATTEND Internal Medicine
PROC: 0JB70ZZ Excision of Back Subcutaneous Tissue and Fascia, Open Approach (ICD-10-PCS; principal; 2017-09-06)
DX: L89.153 Pressure ulcer of sacral region, stage 3 (principal); G93.40 Encephalopathy, unspecified; E87.2 Acidosis; E44.0 Moderate protein-calorie malnutrition; L89.620 Pressure ulcer of left heel, unstageable; E11.9 Type 2 diabetes mellitus without complications; D64.9 Anemia, unspecified; N39.0 Urinary tract infection, site not specified; Z68.1 Body mass index [BMI] 19.9 or less, adult; G30.9 Alzheimer's disease, unspecified; F02.80 Dementia in other diseases classified elsewhere, unspecified severity, without behavioral disturbance, psychotic disturbance, mood disturbance, and anxiety; I25.10 Atherosclerotic heart disease of native coronary artery without angina pectoris; Z95.5 Presence of coronary angioplasty implant and graft; Z74.09 Other reduced mobility; R31.29 Other microscopic hematuria; Z79.82 Long term (current) use of aspirin; Z79.899 Other long term (current) drug therapy; K21.9 Gastro-esophageal reflux disease without esophagitis; E03.9 Hypothyroidism, unspecified
CPT/HCPCS: 36415; 70030-TC; 71010; 82747; 83605; 83735; 84100; 84443; 85014; 85025; 85730; 86592; 87040; 87070; 87077; 87086; 93005; A4217; A4663; C1758; J1170; J2270; J2405; J2543; J3370; J3490; J7040; J7050; J7060